=== PATIENT | male | born 1970 | race African-American/Black ===

== ENCOUNTER 2019-06-22 22:05 | Inpatient (IN) | payer OTHER ==
[~2019-06-22] VITALS: Ht 188 cm; Wt 109.3 kg
--- NOTE | 2019-06-22 22:40 | NUR ---
DR. YU AT BEDSIDE FOR MSE.
[2019-06-22 23:03] LABS: BASOPHILS # (AUTO) 0.1 K/uL (0.0-8.0); BASOPHILS % (AUTO) 0.6 % (0.0-2.0); EOSINOPHILS % (AUTO) 0.5 % (0.0-7.0); HEMATOCRIT 41.8 % (36.7-47.1); HEMOGLOBIN 13.9 g/dL (12.5-16.3); LYMPHOCYTES # (AUTO) 1.4 K/uL (20.0-40.0); LYMPHOCYTES % (AUTO) 15.8 % (20.5-51.5); MEAN CORPUSCULAR HEMOGLOBIN 28.7 uug (23.8-33.4); MEAN CORPUSCULAR HGB CONC 33 g/dL (32.5-36.3); MEAN CORPUSCULAR VOLUME 86.5 fL (73.0-96.2); MONOCYTES # (AUTO) 0.6 K/uL (2.0-10.0); MONOCYTES % (AUTO) 6.6 % (0.0-11.0); NEUTROPHILS % (AUTO) 76.5 % (38.5-71.5); PLATELET COUNT (AUTO) 256 K/uL (152-348); RED BLOOD CELL COUNT(AUTO) 4.83 MIL/uL (4.06-5.63); WHITE BLOOD COUNT (AUTO) 9.2 K/uL (3.6-10.2)
[2019-06-22 23:12] LABS: CREATININE 1.2 mg/dL (0.6-1.3)
[2019-06-22 23:18] LABS: BILIRUBIN,DIRECT 0.1 mg/dL (0.0-0.2); BILIRUBIN,TOTAL 0.3 mg/dL (0.2-1.0); TOTAL PROTEIN, SERUM 7.6 g/dL (6.4-8.2)
[2019-06-22] MEDS ORDERED: PIPERACILLIN/TAZOBACTAM/D5W 50 ML IV ONE (23:22)
[2019-06-22] MEDS ORDERED: ONDANSETRON 4 MG/2 ML VIAL IV ONE (23:30)
[2019-06-22] MEDS ORDERED: MORPHINE SULFATE 4 MG/1 ML DISP.SYRIN IV ONE (23:30)
[2019-06-22] MEDS ORDERED: IV NS 1000 ML 1,000 ML IV ONE (23:30)
[2019-06-22] MEDS ORDERED: PIPERACILLIN SODIUM/TAZOBACTAM 3.375 G in IV DEXTROSE 5% 50 ML IV ONE (23:30)
[2019-06-22 23:32] LABS: *BILIRUBIN,URIN NEGATIVE (NEGATIVE); *CLARITY,URINE CLEAR (CLEAR); *COLOR,URINE YELLOW (YELLOW); *KETONES,URINE NEGATIVE (NEGATIVE); *UROBILINOGEN,URINE 0.2 E.U./dl (NORMAL); LEUKOCYTE ESTERASE ,URINE NEGATIVE (NEGATIVE); NITRITE, URINE NEGATIVE (NEGATIVE); PH,URINE 6.5 (5.0-8.0); UGLUCOSE NEGATIVE (NEGATIVE)
[2019-06-22 23:35] LABS: *BLOOD, URINE TRACE (NEGATIVE)
[2019-06-22] MEDS ORDERED: SWABABLE VALVE TRANSFER SET EA MC ONE (23:36)
[2019-06-22] MEDS ORDERED: IOHEXOL 300MG/ML 100 ML INFUS..BTL ONE (23:36)
[2019-06-22] MEDS ORDERED: IV NORMAL SALINE 250 ML IV ONE (23:36)
[2019-06-22 23:39] LABS: BACTERIA,URINE NONE SEEN /HPF (NONE SEEN); MUCUS,URINE FEW /LPF (0-FEW); RBC,URINE 0-3 /HPF (0-3); SQUAMOUS EPITHELIAL CELL,UR FEW /HPF (NONE SEEN); WBC,URINE 0-3 /HPF (0-3)
[2019-06-23] VITALS (7 sets, daily range): BP systolic 100–131; BP diastolic 48–69
[2019-06-23] MEDS ORDERED: IV NS 1000 ML 1,000 ML IV PRN (01:01)
--- NOTE | 2019-06-23 01:02 | NUR ---
Dr Laird speaking to Marina Alexandre NP vp construction for [employer].
--- NOTE | 2019-06-23 01:04 | NUR ---
SPOKE WITH DR. MELARA. ORDERS RECEIVED. NPO CONSENT: LAPRASCOPIC APPENDECTOMY POSSIBLE OPEN. SCHEDULED FOR SURGERY 729. MRSA SWAB COLLECTED.
[2019-06-23] MEDS ORDERED: ONDANSETRON 4 MG/2 ML VIAL IV PRN (01:15)
[2019-06-23] MEDS ORDERED: ACETAMINOPHEN 325 MG TABLET PO PRN (01:15)
[2019-06-23] MEDS ORDERED: Z GUARD REMEDY PASTE 57 GM TUBE TOP PRN (01:15)
[2019-06-23] MEDS ORDERED: MORPHINE SULFATE 2 MG/1 ML DISP.SYRIN IV PRN (01:15)
[2019-06-23] MEDS ORDERED: TEMAZEPAM 15 MG CAPSULE PO PRN (01:15)
--- NOTE | 2019-06-23 01:43 | NUR ---
Pt. admitted to [facility] , under care of Dr. SHAW/SARITHA Belongs List completed. MRSA SWAB DONE
[2019-06-23] MEDS ORDERED: PIPERACILLIN/TAZOBACTAM/D5W 50 ML IV ONE (03:03)
[2019-06-23] MEDS ORDERED: BUPIVACAINE/EPI PF 0.25% 30 ML VIAL ONE (05:57)
[2019-06-23] MEDS ORDERED: PIPERACILLIN SODIUM/TAZOBACTAM 3.375 G in IV DEXTROSE 5% 50 ML IV SCH (06:00)
--- NOTE | 2019-06-23 06:08 | NUR ---
patient received from ER. v/s stable and no signs of acute distress. report given to Yoly in OR. safety and comfort measures provided. morphine administered x1. will continue to monitor and endorse to morning nurse.
--- NOTE | 2019-06-23 07:01 | NUR ---
patient picked up from Surgery.
[2019-06-23] MEDS ORDERED: SEVOFLURANE 250 ML BOTTLE IH ONE (09:00)
[2019-06-23] MEDS ORDERED: GLYCOPYRROLATE 0.2 MG/ML VIAL IJ ONE (09:00)
[2019-06-23] MEDS ORDERED: ENOXAPARIN SODIUM 40 MG/0.4 ML DISP.SYRIN SQ SCH (09:00)
[2019-06-23] MEDS ORDERED: LIDOCAINE-MPF 2% 5 ML VIAL IJ ONE (09:00)
[2019-06-23] MEDS ORDERED: KETOROLAC TROMETHAMINE 30 MG INJ IM ONE (09:00)
[2019-06-23] MEDS ORDERED: PROPOFOL 200 MG/20 ML BOTTLE IV ONE (09:00)
[2019-06-23] MEDS ORDERED: SUCCINYLCHOLINE CHLORIDE 200 MG/10 ML VIAL IV ONE (09:00)
[2019-06-23] MEDS ORDERED: IV NORMAL SALINE 1000 ML BAG IV ONE (09:00)
[2019-06-23] MEDS ORDERED: EPHEDRINE SULFATE 50 MG/ML AMPUL IM ONE (09:00)
[2019-06-23] MEDS ORDERED: ONDANSETRON 4 MG/2 ML VIAL IV ONE (09:00)
[2019-06-23] MEDS ORDERED: DEXAMETHASONE SOD PHOSPHATE 4 MG INJ IV ONE (09:00)
[2019-06-23] MEDS ORDERED: NEOSTIGMINE METHYLSULFATE 10 MG/10 ML VIAL IM ONE (09:00)
[2019-06-23] MEDS ORDERED: IV D5W-0.45% NS +20 KCL 1,000 ML IV ONE (09:35)
[2019-06-23] MEDS ORDERED: FENTANYL CITRATE 100 MCG/2 ML AMPUL ONE (09:35)
--- NOTE | 2019-06-23 10:30 | NUR ---
Pt. back from surgery. Received report pt. has low grade fever of 99.1 F. Rechecked temperature at 98.4. Will continue to monitor. Pt. denies pain/ discomfort. pt. denies SOB/ difficulty breathing. Safety measures in place. Call light within reach. Will continue to monitor pt.
[2019-06-23] MEDS ORDERED: MORPHINE SULFATE 4 MG/1 ML DISP.SYRIN IV PRN (11:00)
[2019-06-23] MEDS: PANTOPRAZOLE SODIUM 40 MG VIAL IV SCH (12:39)
[2019-06-23] MEDS: IV D5W-0.45% NS +20 KCL 1,000 ML IV PRN ×2 (12:43→21:57)
[2019-06-23] MEDS: PIPERACILLIN SODIUM/TAZOBACTAM 3.375 G in IV DEXTROSE 5% 50 ML IV SCH ×2 (14:49→21:57)
--- NOTE | 2019-06-23 19:34 | NUR ---
Pt. resting comfortably in bed. No fever throughout shift. Pt. denies pain discomfort. pt. denies SOB/ difficulty breathing. Safety measures in place. call light within reach. will endorse to pm nurse.
--- NOTE | 2019-06-23 20:00 | NUR ---
Patient received into care, laying in bed, watching television. Patient is alert/oriented x4 and has no complaints of pain or discomfort at this time. Provided patient education regarding recent procedure and what to expect, including referred pain to shoulders from gas used during laparoscopy. Also educated on importance of ambulating. All safety and fall precaution measures are in place. Call light and personal items are within reach at all times. Will continue to monitor and assess.
[2019-06-24 04:00] VITALS: BP 131/86
[2019-06-24] MEDS: PIPERACILLIN SODIUM/TAZOBACTAM 3.375 G in IV DEXTROSE 5% 50 ML IV SCH (05:03)
--- NOTE | 2019-06-24 06:00 | NUR ---
Patient slept throughout night with complaints of pain addressed with prescribed analgesics. All nursing needs met promptly and patient is warm, dry, and comfortable. Safety and fall precaution measures remain in place. Call light and personal items remain within reach at all times.
[2019-06-24 06:08] LABS: BASOPHILS % (AUTO) 0.2 % (0.0-2.0); EOSINOPHILS % (AUTO) 0.2 % (0.0-7.0); HEMATOCRIT 36.9 % (36.7-47.1); HEMOGLOBIN 12.1 g/dL (12.5-16.3); LYMPHOCYTES # (AUTO) 1.8 K/uL (20.0-40.0); LYMPHOCYTES % (AUTO) 23.8 % (20.5-51.5); MEAN CORPUSCULAR HEMOGLOBIN 28.6 uug (23.8-33.4); MEAN CORPUSCULAR HGB CONC 33 g/dL (32.5-36.3); MONOCYTES # (AUTO) 0.5 K/uL (2.0-10.0); MONOCYTES % (AUTO) 6.5 % (0.0-11.0); NEUTROPHILS # (AUTO) 5.3 K/uL (1.8-8.9); NEUTROPHILS % (AUTO) 69.3 % (38.5-71.5); PLATELET COUNT (AUTO) 234 K/uL (152-348); RED BLOOD CELL COUNT(AUTO) 4.25 MIL/uL (4.06-5.63); WHITE BLOOD COUNT (AUTO) 7.6 K/uL (3.6-10.2)
[2019-06-24 06:36] LABS: CREATININE 1.2 mg/dL (0.6-1.3); MAGNESIUM 2.3 mg/dL (1.8-2.4)
[2019-06-24 08:00] VITALS: BP 123/68
[2019-06-24] MEDS: PANTOPRAZOLE SODIUM 40 MG VIAL IV SCH (08:15)
--- NOTE | 2019-06-24 08:17 | NUR ---
alert, oriented, and no complaint of discomfort, nor pain, all small abdominal incisions, cdi, anxious to go home, out of bed, and walked in the hallway now.
[2019-06-24 11:58] VITALS: BP 147/83
--- NOTE | 2019-06-24 12:49 | NUR ---
Cleared by surgery, discharge paperwork proceeded, RX- [facility] for pain, and Keflex po, antibiotics, given, with all explainations how to use them Verbalized understanding, will be discharged to home after finished eating lunch
[2019-06-25] MEDS ORDERED: PANTOPRAZOLE SODIUM 40 MG TABLET.DR PO SCH (07:00)
== END 2019-06-24 13:40 | disposition home or self-care (01) | DRG 341 ==
LOC: ER 22:05 → MEDSURG3 06-23 01:26
PROVIDERS: ADMIT Nurse Practitioner Acute Care; ATTEND Student in an Organized Health Care Education/Training Program
PROC: 0DTJ4ZZ Resection of Appendix, Percutaneous Endoscopic Approach (ICD-10-PCS; principal; 2019-06-23)
DX: K35.30 Acute appendicitis with localized peritonitis, without perforation or gangrene (principal); K85.90 Acute pancreatitis without necrosis or infection, unspecified; E66.01 Morbid (severe) obesity due to excess calories; Z68.30 Body mass index [BMI] 30.0-30.9, adult; K21.9 Gastro-esophageal reflux disease without esophagitis
CPT/HCPCS: 36415; 83690; 83735; 84100; 85025; 93005; A4663; C9113; G0378; J0330; J1100; J1885; J2270; J2405; J2543; J2710; J3010; J3490; J7030; J7050; J7060; L8699; Q9967